=== PATIENT | male | born 1975 | race Caucasian/White ===

== ENCOUNTER 2017-05-18 11:02 | Emergency (ER) | payer MEDICAID ==
[~2017-05-18 11:02] MED LIST: ACETAMINOPHEN PO; ASPIRIN81 M1 PO; ATENOLOL50 MG PO; AUGMENTIN PO; BENAZEPRIL HCL10 MG PO; BENTYL10 MG PO; BP MED; BUSPAR15 MG; BUSPAR15 MG PO; CALAN PO; CARAFATE1 GM PO; CELEXA PO; FOLTX PO; HUMIBID L.1 TAB.SR . PO; KEFLEX500 MG PO; KLONOPIN PO; KLONOPIN1 MG PO; LEVAQUIN PO; METFORMIN PO; METOPROLOL TAR25 MG PO; MULTI VITAMIN1 EACH PO; MULTIVITAMIN1 UDCAP; MULTIVITAMIN1 UDCAP PO; NAPROXEN250 MG PO; PERCOCET 5-3251 TAB PO; PRILOSEC PO; PROZAC PO; [UNRECOGNIZED DRUG - REMARK]
[2017-05-18] MEDS ORDERED: VERAPAMIL ER240 MG PO (11:06)
[2017-05-18] MEDS ORDERED: AUGMENTIN (11:07)
[2017-05-18] MEDS ORDERED: OCUFLOX5 ML (11:07)
== END 2017-05-18 13:09 | disposition home or self-care (01) ==
LOC: SED 11:02
DX: H60.91 Unspecified otitis externa, right ear (principal); I10 Essential (primary) hypertension; Z90.49 Acquired absence of other specified parts of digestive tract
CPT/HCPCS: 96372; 99283; J1885